=== PATIENT | male | born 1990 ===

== ENCOUNTER 2020-02-11 21:26 | Emergency (ER) | payer OTHER ==
[~2020-02-11] VITALS: Ht 182.9 cm; Wt 100.0 kg
[2020-02-11 21:28] VITALS: BP 143/94
--- NOTE | 2020-02-11 21:38 | NUR ---
I GOT HIM A FEW CUPS OF WATER TO DRINK.
== END 2020-02-11 21:53 | disposition left against medical advice (07) ==
LOC: ER 21:28
DX: T40.1X1A Poisoning by heroin, accidental (unintentional), initial encounter (principal); Z53.21 Procedure and treatment not carried out due to patient leaving prior to being seen by health care provider; Y92.89 Other specified places as the place of occurrence of the external cause
CPT/HCPCS: 93005